=== PATIENT | male | born 1980 | race Caucasian/White ===

== ENCOUNTER 2019-06-27 20:00 | Emergency (ER) | payer OTHER ==
[~2019-06-27] VITALS: Ht 188 cm; Wt 197.3 kg
[2019-06-27 20:20] VITALS: Ht 188 cm; Wt 197.3 kg
[2019-06-27 21:15] LABS: BASOPHIL % 1.1 % (0-2); PLATELET COUNT 297 x10^3mcL (130-400)
[2019-06-27 21:25] LABS: CALCIUM 9.1 mg/dL (8.5-10.1); CARBON DIOXIDE 25.8 mmol/L (21-32); CHLORIDE SERUM 105 mmol/L (98-107); CREATININE SERUM 1.1 mg/dL (0.7-1.3); GFR1 > 60 mL/min; GLUCOSE SERUM 122 mg/dL (74-106); POTASSIUM SERUM 4.1 mmol/L (3.5-5.1); SODIUM SERUM 140 mmol/L (136-145)
[2019-06-27 21:29] LABS: ALBUMIN 3.9 g/dL (3.4-5.0); ALKALINE PHOSPHATASE 57 U/L (46-116); ALT/SGPT 54 U/L (16-63); AST/SGOT 29 U/L (15-37); BILIRUBIN TOTAL 0.3 mg/dL (0.20-1.00); C REACTIVE PROTEIN 0.5 mg/dL (<=0.9); LIPASE 126 IU/L (73-393); TOTAL PROTEIN, SERUM 8.1 g/dL (6.4-8.2)
[2019-06-27 23:10] VITALS: BP 136/50
== END 2019-06-27 23:10 | disposition home or self-care (01) ==
LOC: ED 20:00 → EDSEX 20:06 → ED 23:10
PROVIDERS: Emergency Medicine
DX: N13.2 Hydronephrosis with renal and ureteral calculous obstruction (principal)
CPT/HCPCS: J1885; J2405; J7030